=== PATIENT | male | born 1960 | race Caucasian/White ===

== ENCOUNTER 2021-08-06 09:43 | Emergency (ER) | payer BC ==
[2021-08-06 09:57] VITALS: BP 118/72; PULSE 70
--- NOTE | 2021-08-06 10:16 | EDM.PDOC ---
ED HPI GENERAL MEDICAL PROBLEM - General Chief Complaint: Gastrointestinal Problem Stated Complaint: POST OP ANAL BLEEDING Time Seen by Provider: 08/06/21 09:55 Source of Information: Reports: Patient, Family History Limitations: Reports: No Limitations - History of Present Illness INITIAL COMMENTS - FREE TEXT/NARRATIVE: 61-year-old male presents to the ED for evaluation of persistent bleeding per rectum with 3 bowel movements yesterday and 3 so far today all containing bright red blood. This morning he felt there was a bit of stool mixed with the last bowel movement. Patient has some mild right hemiabdominal discomfort. Described as mild cramps. Of note the patient underwent colonoscopy yesterday by drapery inspector Dr. Noel? --In [place]. He had 24 polyps resected. This is his first colonoscopy. He does not know of any other family members who have colonic polyps. He is not lightheaded or dizzy. Does not feel short of breath. Does not feel his heart is working hard. No weakness in lower extremities. Still has an appetite. Onset: Sudden Onset Date: 08/05/21 (Had 3 bowel meds yesterday which contained mostly blood with a few clots after resection of 24 polyps from his colon) Duration: Hour(s):, Intermittent (6 or 7 bowel movement since having colonoscopy.) Location: Reports: Other (Bright red blood per rectum after colonoscopy) Quality: Reports: Other Severity: Moderate (Painless) Improves with: Reports: None Worsens with: Reports: None Context: Reports: Other (Patient underwent colonoscopy yesterday [facility] in [place] and had 24 polyps removed from his colon). Denies: Activity, Exercise, Lifting, Sick Contact, Trauma Associated Symptoms: Reports: No Other Symptoms. 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 (see below) (He is currently not on aspirin or any other antiplatelet agents.) - Related Data Allergies Allergy/AdvReac Type Severity Reaction Status Date / Time pollen extracts Allergy Cannot Verified 11/24/15 07:23 Remember dust Allergy Cannot Uncoded 11/24/15 07:23 Remember Home Meds: Home Meds Losartan [Cozaar] 100 mg PO DAILY 11/21/15 [History] amLODIPine Besylate [Amlodipine Besylate] 2.5 mg PO DAILY 11/21/15 [History] carvediloL [Carvedilol] 3.125 mg PO BID 11/21/15 [History] Past Medical History HEENT History: Reports: Allergic Rhinitis Cardiovascular History: Reports: High Cholesterol, Hypertension Other Cardiovascular History: PVCs, PACs Respiratory History: Reports: Sleep Apnea Other Respiratory History: uses CPAP Gastrointestinal History: Reports: Other (See Below) (Underwent colonoscopy yesterday August 06 in [place] and had 24 polyps removed) Other Gastrointestinal History: abdominal pain, diarrhea Musculoskeletal History: Reports: Osteoarthritis Other Psychiatric History: insomnia Dermatologic History: Reports: Seborrheic Dermatitis - Past Surgical History Musculoskeletal Surgical History: Reports: Arthroscopic Knee Social & Family History - Living Situation & Occupation Living situation: Reports: Occupation: Employed ED ROS GENERAL - Review of Systems Review Of Systems: See Below Constitutional: Denies: Fever, Chills, Malaise, Weakness, Fatigue, Night Sweats, Decreased Appetite, Weight Loss, Weight Gain, Other HEENT: Reports: Glasses Respiratory: Reports: No Symptoms Cardiovascular: Reports: Blood Pressure Problem Endocrine: Reports: No Symptoms GI/Abdominal: Reports: Hematochezia (6 or 7 bowel meds all containing blood since having colonoscopy with removal of 24 polyps yesterday) : Reports: Other (Nocturia x2. Known BPH) Musculoskeletal: Reports: Joint Pain (Knees hips low back neck at times) Skin: Reports: No Symptoms Neurological: Reports: No Symptoms. Denies: Dizziness, Headache Psychiatric: Reports: No Symptoms ED EXAM, GI/ABD - Physical Exam Exam: See Below Exam Limited By: No Limitations General Appearance: Alert, WD/WN, No Apparent Distress, Other (Temperature is 36.3 degrees heart rate 70 and sinus respiratory 16 O2 sats 97% room air BP 118/72) Eyes: Bilateral: Normal Appearance (No blepharal pallor) Respiratory/Chest: No Respiratory Distress, Lungs Clear, Normal Breath Sounds, No Accessory Muscle Use, Chest Non-Tender Cardiovascular: Normal Peripheral Pulses, Regular Rate, Rhythm, No Edema, No Gallop, No JVD, No Rub GI/Abdominal Exam: Normal Bowel Sounds, Soft, Non-Tender, No Organomegaly, No Distention. No: Guarding, Rebound (Male) Exam: No Hernia Rectal (Males) Exam: Other ( had pictures of blood in the toilet and it seemed to be less with the last bowel movement) Back Exam: Normal Inspection. No: Full Range of Motion Extremities: Normal Inspection, Normal Range of Motion, Non-Tender, No Pedal Edema, Other (Normal color and palms of hands.) Neurological: Alert, Oriented, CN II-XII Intact, Normal Cognition, Normal Gait, Normal Reflexes Psychiatric: Normal Affect, Normal Mood Skin Exam: Warm, Dry, Intact, Normal Color, No Rash Course - Vital Signs Last Recorded V/S: Last Vital Signs Temp 36.3 C 08/06/21 09:54 Pulse 70 08/06/21 09:54 Resp 16 08/06/21 09:54 BP 118/72 08/06/21 09:54 Pulse Ox 97 08/06/21 09:54 Orthostatic Blood Pressure [ 128/80 lying] Orthostatic Blood Pressure [ 135/79 Standing] Orthostatic Blood Pressure [ 129/83 Sitting] - Orders/Labs/Meds Labs: Laboratory Tests 08/06/21 08/06/21 Range/Units 10:36 10:36 WBC 10.61 H (4.23-9.07) K/mm3 RBC 4.83 (4.63-6.08) M/mm3 Hgb 14.2 (13.7-17.5) gm/dl Hct 43.5 (40.1-51.0) % MCV 90.1 (79.0-92.2) fl MCH 29.4 (25.7-32.2) pg MCHC 32.6 (32.2-35.5) g/dl RDW Std Deviation 46.0 H (35.1-43.9) fL Plt Count 267 (163-337) K/mm3 MPV 9.0 L (9.4-12.3) fl Neut % (Auto) 64.8 (34.0-67.9) % Lymph % (Auto) 24.2 (21.8-53.1) % [place] % (Auto) 8.8 (5.3-12.2) % Eos % (Auto) 1.7 (0.8-7.0) Baso % (Auto) 0.3 (0.1-1.2) % Neut # (Auto) 6.88 H (1.78-5.38) K/mm3 Lymph # (Auto) 2.57 (1.32-3.57) K/mm3 [place] # (Auto) 0.93 H (0.30-0.82) K/mm3 Eos # (Auto) 0.18 (0.04-0.54) K/mm3 Baso # (Auto) 0.03 (0.01-0.08) K/mm3 Sodium 138 (136-145) mEq/L Potassium 3.8 (3.5-5.1) mEq/L Chloride 103 (98-107) mEq/L Carbon Dioxide 26 (21-32) mEq/L Anion Gap 12.8 (5-15) BUN 17 (7-18) mg/dL Creatinine 1.1 (0.7-1.3) mg/dL Est Cr Clr Drug Dosing TNP Estimated GFR (MDRD) > 60 (>60) mL/min BUN/Creatinine Ratio 15.5 (14-18) Glucose 125 H (70-99) mg/dL Calcium 8.5 (8.5-10.1) mg/dL Total Bilirubin 0.7 (0.2-1.0) mg/dL AST 19 (15-37) U/L ALT 27 (16-63) U/L Alkaline Phosphatase 94 (46-116) U/L Total Protein 7.3 (6.4-8.2) g/dl Albumin 3.4 (3.4-5.0) g/dl Globulin 3.9 gm/dL Albumin/Globulin Ratio 0.9 L (1-2) - Radiology Interpretation Free Text/Narrative:: 61-year-old male presents to the ED for evaluation of persistent bleeding per rectum post colonoscopy yesterday. He had 24 polyps removed by drapery inspector at time of colonoscopy yesterday. He believes he had 3 or 4 bowel movements post colonoscopy that contained blood yesterday and 3 is so far this morning. The last one seemed to be less blood than the first 1. There is no signs that he is anemic. He is not orthostatic. Plan CBC and CMP to be done. - Re-Assessments/Exams Free Text/Narrative Re-Assessment/Exam: 08/06/21 10:57 Labs reveal a slightly elevated white count of 10.61. Auto differential reveals 65% neutrophils. Hemoglobin is 14.2 with hematocrit of 43.5 platelet count is normal at 267,000. 08/06/21 11:00: I have discussed the findings with the patient and his . At this time he is showing no signs of peritonitis or significant abdominal pain. He has had no further bowel movement since being in the ED. Advised things should settle down and bleeding should stop within the next 48 hours. If not he should be seen again for repeat hemoglobin although there is a 95% chance this bleeding will stop on its own. Departure - Departure Time of Disposition: 10:57 Disposition: Home, Self-Care 01 Condition: Fair Clinical Impression: Acute lower gastrointestinal bleeding - Discharge Information *PRESCRIPTION DRUG MONITORING PROGRAM REVIEWED*: Not Applicable *COPY OF PRESCRIPTION DRUG MONITORING REPORT IN PATIENT CODY: Not Applicable Instructions: Gastrointestinal Bleeding, [id number] Referrals: Naty Sanchez NP [Primary Care Provider] - Forms: ED Department Discharge Additional Instructions: Evaluation in the emergency room this morning in regards to bleeding per rectum since colonoscopy performed yesterday by drapery inspector in [place]. Reportedly 24 polyps were resected at that time. As discussed you had 3 or 4 bowel movements after the procedure that contained blood and still 3 bowel movements this morning that contained blood. Your hemoglobin today is 14.2 which is well within the normal range. You are not orthostatic or showing evidence of significant blood loss. Bleeding after multiple polyp resection is not uncommon. It usually stops within 48 to 72 hours. You would need to return to the ED if your bleeding persists longer than 72 hours or you get lightheaded dizzy. Sepsis Event Note (ED) - Evaluation Sepsis Screening Result: No Definite Risk
== END 2021-08-06 11:14 | disposition home or self-care (01) ==
LOC: JD.ED 09:43
DX: K92.2 Gastrointestinal hemorrhage, unspecified (principal); E78.00 Pure hypercholesterolemia, unspecified; I10 Essential (primary) hypertension; Z79.899 Other long term (current) drug therapy; Z91.09 Other allergy status, other than to drugs and biological substances; Z91.048 Other nonmedicinal substance allergy status
CPT/HCPCS: 36415; 80053; 85025; 99283

== ENCOUNTER 2022-05-02 23:30 | Emergency (ER) | payer BC ==
[2022-05-03 01:00] VITALS: BP 185/104; PULSE 60
[2022-05-03] MEDS ORDERED: Acetaminophen/HYDROcodone 325-5 MG Tab PO ONE (01:47)
== END 2022-05-03 03:40 | disposition home or self-care (01) ==
LOC: JD.ED 23:30
DX: S70.02XA Contusion of left hip, initial encounter (principal); I10 Essential (primary) hypertension; E66.9 Obesity, unspecified; Z68.34 Body mass index [BMI] 34.0-34.9, adult; Z91.048 Other nonmedicinal substance allergy status; Z79.899 Other long term (current) drug therapy; W18.30XA Fall on same level, unspecified, initial encounter
CPT/HCPCS: 73502; 99283; A9270